=== PATIENT | female | born 1980 | race African-American/Black ===

== ENCOUNTER 2017-05-06 17:15 | Emergency (ER) | END 2017-05-06 19:59 | disposition home or self-care (01) ==

== ENCOUNTER 2018-05-24 20:19 | Emergency (ER) | payer OTHER ==
[~2018-05-24] VITALS: Wt 54.5 kg
[~2018-05-24 20:19] MED LIST: BENZ1TAB7; CYCL10TA7 PO; HYDR-4011 PO; IBUP-1561 PO; IBUP800T48 PO; OMEP20CA9; PHEN100C; RTPRO; THO50
[2018-05-24] MEDS ORDERED: METHYLPREDNISOLONE 125 MG INJ IV ONE (21:30)
[2018-05-24] MEDS ORDERED: IPRATROPIUM (NEB) 0.5 MG/2.5 ML AMP INH PRN (21:30)
[2018-05-24] MEDS ORDERED: ALBUTEROL 0.5% (NEB) 2.5 MG/0.5 ML AMP INH PRN ×2 (21:30)
[2018-05-24] MEDS ORDERED: KETOROLAC 30 MG INJ IV STA (21:33)
[2018-05-24] MEDS ORDERED: IPRATROPIUM (NEB) 0.5 MG/2.5 ML AMP HHN ONE (22:00)
[2018-05-24] MEDS ORDERED: LEVALBUTEROL (NEB) 1.25 MG/0.5 ML AMP HHN ONE (22:00)
[2018-05-25] MEDS ORDERED: LEVALBUTEROL (NEB) 1.25 MG/0.5 ML AMP HHN ONE
[2018-05-25] MEDS ORDERED: MAGNESIUM SULFATE 2 GM/50 ML 50 ML IVPB STA
[2018-05-25] MEDS ORDERED: PROMETHAZINE/CODEINE 5ML CUP PO ONE
[2018-05-25] MEDS ORDERED: IPRATROPIUM (NEB) 0.5 MG/2.5 ML AMP HHN ONE ×2 (00:30)
[2018-05-25] MEDS ORDERED: PRED20TA PO (01:36)
[2018-05-25] MEDS ORDERED: ALBU2.5V3 NEB (01:36)
[2018-05-25] MEDS ORDERED: LEVO750T8 PO (01:36)
[2018-05-25] MEDS ORDERED: IPRA3AMP29 INHALATION (01:36)
[2018-05-25] MEDS ORDERED: ALBU18HF INHALATION (01:42)
[2018-05-25] MEDS ORDERED: D-ME473S2 PO (01:43)
[2018-05-25] MEDS ORDERED: LEVOFLOXACIN 750 MG TABLET PO ONE (02:00)
[2018-05-25 02:23] VITALS: BP 117/55; PULSE 90; RESP 16
--- NOTE | 2018-05-25 03:14 | ERD ---
ER Documentation Chief Complaint Chief Complaint COUGH AND WHEEZING INTERMITTENT FOR 1 MONTH, NO RELEIF WITH ABX HPI History of Present Illness: Patient coming in today with complaint of cough and wheezing that has been present for 1 month. Associated symptoms include shortness of breath, chills. Patient reports increase in severity of symptoms in the past 2-3 days. Patient reports no relief with at home albuterol. Patient reports Z-Gunner given approximately 2 weeks and she feels that symptoms have not gotten any better. Patient also reports taking some type of blue pills for unknown reason for 2 weeks. Patient is a tobacco user and marijuana user. At home pharmacological/nonpharmacological treatment for symptoms: Albuterol inhaler Denies social concerns; Denies recent foreign travel ROS All systems reviewed and are negative except as per history of present illness. Medications Home Meds Active Scripts Dextromethorphan Hb-Promethazine Hcl* (Promethazine DM* Syrup) 473 Ml Syrup, 5 ML PO Q6 PRN for COUGH, #60 ML Prov:KIMBERLYN MOURA NP 05/25/18 Albuterol Sulfate* (Ventolin HFA*) 18 Gm Hfa.aer.ad, 2 PUFF INHALATION Q4H, #1 INHALER Prov:KIMBERLYN MOURA NP 05/25/18 Ipratropium-Albuterol (Ipratropium-Albuterol) 0.5-3 Mg/3 Ml Ampul.neb, 3 ML INHALATION Q12 for wheezing with congestion, #30 VIAL Prov:KIMBERLYN MOURA NP 05/25/18 Albuterol Sulfate* (Albuterol Sulfate* Neb) 0.083%-3 Ml Neb, 2.5 MG NEB Q4H for shortness of breath/wheezing, #30 VIAL Prov:KIMBERLYN MOURA NP 05/25/18 Prednisone* (Prednisone*) 20 Mg Tab, 40 MG PO DAILY for wheezing/asthma ex acerabation for 5 Days, TAB Prov:KIMBERLYN MOURA NP 05/25/18 Levofloxacin* (Levofloxacin*) 750 Mg Tablet, 750 MG PO DAILY for pneumonia for 5 Days, TAB Prov:KIMBERLYN MOURA NP 05/25/18 Hydrocodone/Acetaminophen ([place] 5-325 Tablet) 1 Each Tablet, 1 TAB PO Q6H PRN for PAIN, #7 TAB Prov:MARAL ALTMAN NP 05/06/17 Ibuprofen* (Motrin*) 400 Mg Tab, 400 MG PO Q6, #30 TAB Prov:MARAL ALTMANBushra CISNEROS 05/06/17 Cyclobenzaprine Hcl* (Cyclobenzaprine Hcl*) 10 Mg Tablet, 10 MG PO QHS, #15 TAB Prov:VIOLETA DON PA-C 01/10/16 Ibuprofen* (Motrin*) 800 Mg Tab, 800 MG PO Q6, #30 TAB Prov:VIOLETA DON PA-C 01/10/16 Reported Medications Omeprazole* (Prilosec*) 20 Mg Capsule. 08/11/10 Albuterol Sulfate* (Proventil* Neb) 3 Ml Nebu 11/29/09 Phenytoin* Sodium Extended (Dilantin*) 100 Mg Capsule 11/29/09 Benztropine Mesylate* (Cogentin*) 1 Mg Tab 11/29/09 Chlorpromazine Hcl* (Thorazine*) 50 Mg Tab 11/29/09 Allergies Allergies: Coded Allergies: cephalexin (Verified Allergy, Mild, 05/06/17) latex (Verified Allergy, Mild, 05/06/17) penicillin G (Verified Allergy, Mild, 05/06/17) Uncoded Allergies: MULTIPLE ABX (Allergy, Mild, 11/29/09) PMhx/Soc History of Surgery: Yes (cholecystectomy 9 yrs ago, left humerus ORIF x 2 2008) Anesthesia Reaction: No Hx Neurological Disorder: Yes (seizure disorder) Hx Respiratory Disorders: Yes (asthma) Hx Cardiac Disorders: Yes (high cholesterol ) Hx Psychiatric Problems: Yes (anxiety ) Hx Miscellaneous Medical Probl: Yes (THYROID CA) Hx Alcohol Use: No Hx Substance Use: Yes (marijuana ) Hx Tobacco Use: Yes (1 pack per day) Smoking Status: Current every day smoker FmHx Family History: coronary disease Physical Exam Vitals Vital Signs Date Temp Pulse Resp B/P (MAP) Pulse Ox O2 O2 Flow FiO2 Time Delivery Rate 05/25/18 90 16 117/55 97 Room Air 02:23 (75) 05/25/18 89 20 95 21 00:38 05/24/18 111 20 98 21 22:05 05/24/18 99.0 103 26 120/56 99 20:21 (77) Physical Exam Const: No acute distress, afebrile Head: Atraumatic Eyes: Normal Conjunctiva ENT: Normal External Ears, Nose and Mouth. Neck: Full range of motion. No meningismus. Resp: Severe inspiratory and expiratory wheezing noted to all lobes, coarse breath sounds, no stridor Cardio: Regular rate and rhythm, no murmurs Abd: Soft, non tender, non distended. No guarding, no masses, no rigidity Skin: No petechiae or rashes Back: No midline or flank tenderness Ext: No cyanosis, or edema Neur: Awake and alert x3, speaking in clear sentences, no focal deficits or facial asymmetry Psych: Normal Mood and Affect Results 24 hrs Laboratory Tests Test 05/24/18 21:47 POC Beta HCG, Qualitative NEGATIVE Current Medications Medications Dose Sig/Sammy Start Time Status Last (Trade) Ordered Route PRN Stop Time Admin Dose Reason Admin Albuterol 5 mg ED PED 05/24/18 DC (Proventil ASTHMA PATH 21:30 0.5% (Neb)) PRN INH 05/24/18 22:01 .RESPIRATORY SCORE Albuterol 20 mg ED PED 05/24/18 DC (Proventil ASTHMA PATH 21:30 0.5% (Neb)) PRN INH 05/24/18 22:01 .RESPIRATORY SCORE Ipratropium ED PED 05/24/18 DC [place] ASTHMA PATH 21:30 (Atrovent PRN INH 05/24/18 22:01 0.02% .RESPIRATORY (Neb)) SCORE 125 mg ONCE ONCE 05/24/18 DC 05/24/18 Methylprednis IV 21:30 21:53 olone Sodium 05/24/18 21:33 Succinate (Solu-Medrol) Ketorolac 30 mg ONCE STAT 05/24/18 DC 05/24/18 Tromethamine IV 21:33 21:54 (Toradol) 05/24/18 21:34 5 mg ONCE ONCE 05/24/18 DC 05/24/18 Levalbuterol HHN 22:00 22:05 (Xopenex 05/24/18 22:01 Neb) Ipratropium 1 mg ONCE ONCE 05/24/18 DC 05/24/18 [place] HHN 22:00 22:05 (Atrovent 05/24/18 22:01 0.02% (Neb)) 5 mg ONCE ONCE 05/25/18 DC 05/25/18 Levalbuterol HHN 00:00 00:37 (Xopenex 05/25/18 00:01 Neb) Ipratropium 1 mg ONCE ONCE 05/25/18 DC [place] HHN 00:00 (Atrovent 05/25/18 00:08 0.02% (Neb)) Promethazine 10 ml ONCE ONCE 05/25/18 DC 05/25/18 HCl/ PO 00:00 00:21 Codeine 05/25/18 00:03 (Phenergan/ Codeine) Magnesium 50 ml @ 25 ONCE STAT 05/25/18 DC 05/25/18 Sulfate mls/hr IVPB 00:00 00:21 05/25/18 01:59 Ipratropium 0.5 mg ONCE ONCE 05/25/18 DC 05/25/18 [place] HHN 00:30 00:37 (Atrovent 05/25/18 00:31 0.02% (Neb)) 750 mg ONCE ONCE 05/25/18 DC 05/25/18 Levofloxacin PO 02:00 01:59 (Levaquin) 05/25/18 02:01 Procedures/MDM ED course includes a thorough examination and history. Medications: Solu-Medrol IV, Toradol for chest wall tenderness, Atrovent, Xopenex Imaging: --- Labs: --- Patient reassessment at 2350: Wheezing still present but has decreased. Moderate amount of wheezing expiratory to all lobes. Oxygen saturation stable. Patient reports decrease in pain with Toradol. Will order Xopenex and Atrovent continuous. Will order chest x-ray due to no decrease in patient's symptoms after first round of nebulizer treatments. Will order magnesium. Low suspicion for life-threatening medical emergency. Low suspicion for coronary pulmonary emergency that requires hospitalization or immediate surgical intervention. low Suspicion for infectious emergency that requires hospitalization Otherwise healthy patient presenting with constellation of symptoms likely representing asthma exacerbation and pneumonia as characterized by history, physical exam findings, radiologic findings, lab findings. negative. Chest x-ray showing: IMPRESSION: Subtle hazy infiltrate in the right medial lung base for which follow-up may be useful. RPTAT: HJAH Due to patient already taking one course of antibiotics. Will order levofloxacin for 5-day course. Patient educated on black box warning. No respiratory distress, otherwise relatively well appearing and nontoxic. Mild wheezing noted after second round nebulizer treatments. Patient okay for discharge. Vital signs are stable. Patient educated on diagnoses, prescriptions, follow-up care, return precautions. Strict return precautions given for worsening condition; questions answered discharge. patient verbalizes understanding of discharge instructions and treatment plan for outpatient as well as follow-up. Disposition for discharge with followup in 2 days with PCP/clinic. Departure Diagnosis: Primary Impression: Asthma exacerbation Asthma severity: unspecified severity Asthma persistence: unspecified Qualified Codes: J45.901 - Unspecified asthma with (acute) exacerbation Additional Impressions: Encounter for smoking cessation counseling Pneumonia Pneumonia type: due to unspecified organism Laterality: right Lung location: lower lobe of lung Qualified Codes: J18.1 - Lobar pneumonia, unspecified organism Condition: Stable Patient Instructions: Asthma, Acute (Adult), Pneumonia (Adult), Smoking Cessation Referrals: [facility] YOU HAVE RECEIVED A MEDICAL SCREENING EXAM AND THE RESULTS INDICATE THAT YOU DO NOT HAVE A CONDITION THAT REQUIRES URGENT TREATMENT IN THE EMERGENCY DEPARTMENT. FURTHER EVALUATION AND TREATMENT OF YOUR CONDITION CAN WAIT UNTIL YOU ARE SEEN IN YOUR DOCTORS OFFICE WITHIN THE NEXT 1-2 DAYS. IT IS YOUR RESPONSIBILITY TO MAKE AN APPOINTMENT FOR [facility] CARE. IF YOU HAVE A PRIMARY DOCTOR --you should call your primary doctor and schedule an appointment IF YOU DO NOT HAVE A PRIMARY DOCTOR YOU CAN CALL OUR PHYSICIAN REFERRAL HOTLINE AT IF YOU CAN NOT AFFORD TO SEE A PHYSICIAN YOU CAN CHOSE FROM THE FOLLOWING [facility] CLINICS [facility] [address] [facility]. [facility] [address] [facility] [facility] [address] [facility]. [facility] [address] [facility] [facility] [address] [facility]. [facility]. [address] [facility]. [facility] YOU HAVE RECEIVED A MEDICAL SCREENING EXAM AND THE RESULTS INDICATE THAT YOU DO NOT HAVE A CONDITION THAT REQUIRES URGENT TREATMENT IN THE EMERGENCY DEPARTMENT. FURTHER EVALUATION AND TREATMENT OF YOUR CONDITION CAN WAIT UNTIL YOU ARE SEEN IN YOUR DOCTORS OFFICE WITHIN THE NEXT 1-2 DAYS. IT IS YOUR RESPONSIBILITY TO MAKE AN APPOINTMENT FOR [facility] CARE. IF YOU HAVE A PRIMARY DOCTOR --you should call your primary doctor and schedule and appointment IF YOU DO NOT HAVE A PRIMARY DOCTOR YOU CAN CALL OUR PHYSICIAN REFERRAL HOTLINE AT . IF YOU CAN NOT AFFORD TO SEE A PHYSICIAN YOU CAN CHOSE FROM THE FOLLOWING [facility] INSTITUTIONS: [facility] [address] [place] [address] [facility] [address] [place] [address] [facility] [address] [place] [address] Additional Instructions: Thank you very much for allowing us to participate in your care. Your health and safety is our top priority at [facility]. It is important to read all discharge instructions and education provided in your discharge packet. Stop smoking!!! Call your primary care doctor TOMORROW for an appointment during the next 2 days and bring all the information and medications prescribed. Have prescriptions filled and follow precisely the directions on the label. Levofloxacin is a antibiotic for pneumonia; take this medication daily for the next 5 days. If you have any signs of Achilles tendon pain or any tendon pain, stop medication inform your provider. Prednisone is a steroid; take this medication for wheezing/lung inflammation. Albuterol and DuoNeb for both breathing treatments. DuoNeb can be taken once in the morning and once at night; this will help with wheezing/shortness of breath/chest congestion. Albuterol nebulizer can be used throughout the day as needed for shortness of breath/wheezing. Ventolin inhaler can be used for shortness of breath if you are on the go and unable to use her nebulizer machine. Prometh azine/dextromethorphan cough syrup is cough and allergy-like symptoms. If the symptoms get worse and your provider is unavailable, return to the Emergency Department immediately. KIMBERLYN MOURA NP May 25, 2018 03:14
== END 2018-05-25 02:24 | disposition home or self-care (01) ==
LOC: FTE 20:19
DX: J45.901 Unspecified asthma with (acute) exacerbation (principal); J18.1 Lobar pneumonia, unspecified organism; F17.210 Nicotine dependence, cigarettes, uncomplicated; Z71.6 Tobacco abuse counseling; Z85.850 Personal history of malignant neoplasm of thyroid; Z91.040 Latex allergy status
CPT/HCPCS: 71045; 81025; 94644; 94645; 96374; 96375; J1885; J2930; J3475; Z7502; Z7610